=== PATIENT | female | born 1960 | race Caucasian/White ===

== ENCOUNTER 2019-07-04 01:54 | Emergency (ER) | payer OTHER ==
[~2019-07-04] VITALS: Ht 167.6 cm; Wt 188.0 kg
[2019-07-04 01:54] VITALS: BP 125/73
--- NOTE | 2019-07-04 02:54 | PHYS DOC ---
Past History Past Medical History: Hypertension Past Surgical History: Cholecystectomy Smoking: Non-smoker Alcohol Use: None General Adult EDM: Chief Complaint: ANKLE PROBLEM HPI: HPI: Patient is a 59 year old female who presents for evaluation of a right foot and ankle injury. Just prior to arrival patient was startled by her fire alarm and try to go down the stairs when the lights were off. She has twisted her ankle and has a moderate swelling to the outer aspect of that foot and ankle. There is no other reported injuries and patient did not hit her head. She is unable to bear weight on the affected foot and ankle without significant pain. She is otherwise benign-appearing Review of Systems: Review of Systems: Constitutional: Denies fever or chills Eyes: Denies change in visual acuity HENT: Denies nasal congestion Respiratory: Denies cough or shortness of breath Cardiovascular: Denies chest pain or edema GI: Denies abdominal pain, nausea, vomiting, or diarrhea : Denies dysuria Musculoskeletal: Denies back pain has right ankle pain Integument: Denies rash Neurologic: Denies headache, focal weakness or sensory changes Endocrine: unremarkable Lymphatic: unremarkable Psychiatric: Denies depression or anxiety Heart Score: Risk Factors: Risk Factors: DM, Current or recent (<one month) smoker, HTN, HLP, family history of CAD, obesity. Risk Scores: Score 0 - 3: 2.5% MACE over next 6 weeks - Discharge Home Score 4 - 6: 20.3% MACE over next 6 weeks - Admit for Clinical Observation Score 7 - 10: 72.7% MACE over next 6 weeks - Early Invasive Strategies Physical Exam: PE: Constitutional: Well developed, well nourished, mild acute distress, non-toxic appearance. [] HENT: Normocephalic, atraumatic, bilateral external ears normal, oropharynx moist, no oral exudates, nose normal. [] Eyes: PERRL, EOMI, conjunctiva normal, no discharge. [] Neck: Normal range of motion, no tenderness, supple, no stridor. [] Cardiovascular:Heart rate regular rhythm, no murmur [] Lungs & Thorax: Bilateral breath sounds clear to auscultation [] Abdomen: Bowel sounds normal, soft, no tenderness, no masses, no pulsatile masses. [] Skin: Warm, dry, no erythema, no rash. [] Back: No tenderness. [] Extremities: Moderate swelling lateral aspect right foot and ankle no cyanosis, no clubbing, ROM intact [] Neurologic: Alert and oriented, normal motor function, normal sensory function, no focal deficits noted. [] Psychologic: Affect normal, judgement normal, mood normal. [] EKG: EKG: [] Radiology/Procedures: Radiology/Procedures: 0258 x-rays reviewed by me. Patient does not have an obvious fracture or dislocation on her right ankle or right foot. Soft tissue swelling noted laterally. [] Course & Med Decision Making: Course & Med Decision Making Pertinent Labs and Imaging studies reviewed. (See chart for details) [address] patient in a Aircast splint. Crutches will be given as well. Supportive care recommended. No obvious fracture seen. Close follow-up with family doctor recommended especially if this not significantly better in the next week. Detailed follow-up instructions given as well as crutch use Dragon Disclaimer: Dragmaggy Disclaimer: This electronic medical record was generated, in whole or in part, using a voice recognition dictation system. Departure Departure: Impression: Primary Impression: Moderate right ankle sprain Qualified Codes: S93.401A - Sprain of unspecified ligament of right ankle, initial encounter Disposition: 01 HOME, SELF-CARE Condition: STABLE Referrals: BABATUNDE VAN MD (PCP) Patient Instructions: Ankle Sprain, Crutch Use, [id number] Additional Instructions: Rest, ice and elevate the affected right ankle and foot. Limited weightbearing for the next several days. Call and see your doctor as needed less than 1 week. We do not see an obvious fracture noted on your x-ray but if you are still in severe pain in 1 week you should get it re-x-rayed DANIEL BERNSTEIN DO July 04, 2019 02:54
--- NOTE | 2019-07-04 04:26 | RAD ---
Study: 1. CR FOOT RIGHT 3V 2. CR ANKLE RIGHT 3V Indication: Pain after a fall. Comparison: None. Findings: Ankle: Prominent soft tissue swelling at the lateral ankle and extending along the hindfoot. Probable ankle joint effusion. Faint densities project distal to the tip of the fibula and along the lateral talar process but these are not definitively osseous fragments. Small focus of mineralization at the tip of the lateral malleolus exhibits features of chronicity. Collectively no acute fracture is seen at the ankle. Alignment is maintained noting the absence of weightbearing. Foot: Possible small fracture fragment seen on the AP view projecting along the lateral margin of the calcaneocuboid joint. This does not definitively correspond to the os peroneum seen on the additional views. No findings suspicious for a fracture elsewhere. No traumatic malalignment. Mild great toe MTP joint arthrosis. Impression: Ankle: 1. Prominent soft tissue swelling at the lateral ankle extending along the hindfoot as well as an ankle joint effusion but without a definite ankle fracture. As deemed necessary, follow-up radiographs could be performed such as 10-14 days to better evaluate given the extent of soft tissue swelling. No traumatic malalignment. Foot: 1. Possible small fracture fragment projecting along the lateral aspect of the calcaneocuboid joint. Electronically signed by: FAIZAN CASTILLO MD (07/04/2019 4:23 AM) [id number]
== END 2019-07-04 03:20 | disposition home or self-care (01) ==
LOC: ER 01:54
DX: S93.401A Sprain of unspecified ligament of right ankle, initial encounter (principal); I10 Essential (primary) hypertension; X50.9XXA Other and unspecified overexertion or strenuous movements or postures, initial encounter; Y93.89 Activity, other specified; Y92.89 Other specified places as the place of occurrence of the external cause; Y99.8 Other external cause status
CPT/HCPCS: 73610; 73630; 99284; L4350; 99283